=== PATIENT | female | born 1995 | race Hispanic/Latino ===

== ENCOUNTER 2023-06-19 07:48 | Day surgery (SDC) | payer MEDICAID ==
[2023-06-16 12:01] LABS: BASOPHILS # (AUTO) 0.04 K/uL (0.00-0.20); BASOPHILS % (AUTO) 0.5 % (0.0-5.0); EOSINOPHILS # (AUTO) 0.34 K/uL (0.00-0.70); EOSINOPHILS % (AUTO) 4.2 % (0.0-8.0); HEMATOCRIT 35.3 % (36-48); IMMATURE GRANULOCYTE ABSOLUTE 0.03 K/uL (0-1); LYMPHOCYTES # (AUTO) 1.7 K/uL (1.0-4.8); LYMPHOCYTES % (AUTO) 21.5 % (21.0-51.0); MEAN CORPUSCULAR HEMOGLOBIN 24.9 pg (27.0-33.0); MEAN CORPUSCULAR HGB CONC 31.2 g/dL (32.0-36.0); MONOCYTES # (AUTO) 0.7 K/uL (0.1-1.0); NEUTROPHILS # (AUTO) 5.2 K/uL (1.8-7.7); NEUTROPHILS % (AUTO) 64.4 % (40.0-77.0); PLATELET COUNT (AUTO) 397 K/uL (130-400); RED BLOOD CELL COUNT(AUTO) 4.41 MIL/uL (4.00-5.50); RED CELL DISTRIBUTION WIDTH 15.3 % (11.0-15.5)
[2023-06-16 12:06] LABS: CREATININE 0.7 mg/dL (0.5-1.5)
[2023-06-16 12:07] VITALS: BP 124/76; PULSE 63; RESP 18
[~2023-06-19] VITALS: Ht 157.5 cm; Wt 88.7 kg
[2023-06-19] VITALS (15 sets, daily range): BP systolic 109–134; BP diastolic 55–89; PULSE 58–83; RESP 11–17
[~2023-06-19 07:48] MED LIST: ESCI-8 PO
[2023-06-19] MEDS ORDERED: LACTATED RINGERS 1000ML 1,000 ML IV ONE (08:34)
[2023-06-19] MEDS ORDERED: CEFAZOLIN SODIUM 2 GM VIAL ONE (08:34)
[2023-06-19] MEDS ORDERED: LIDOCAINE HCL 1% 20 ML VIAL ONE (11:12)
[2023-06-19] MEDS ORDERED: BUPIVACAINE/PF 0.25% 30ML VIAL IJ ONE ×2 (11:13→12:56)
[2023-06-19] MEDS ORDERED: FAMOTIDINE 20MG VIAL IV ONE (12:00)
[2023-06-19] MEDS ORDERED: MIDAZOLAM HCL 1 MG/ML 2ML VIAL ONE (12:23)
[2023-06-19] MEDS ORDERED: PROPOFOL 10 MG/ML 20ML VIAL IV ONE (12:45)
[2023-06-19] MEDS ORDERED: LIDOCAINE PF 100MG/5ML (2%) SYRINGE 5ML ONE (12:45)
[2023-06-19] MEDS ORDERED: FENTANYL CITRATE PF 50 MCG/1 ML 2ML VIAL ONE (12:47)
[2023-06-19] MEDS ORDERED: CEFAZOLIN SODIUM 2 GM VIAL IVPB ONE (12:54)
[2023-06-19] MEDS ORDERED: LIDOCAINE HCL 1% 20 ML VIAL MISC ONE (12:55)
[2023-06-19] MEDS ORDERED: ONDANSETRON 4MG INJ ONE (12:59)
== END 2023-06-19 15:12 | disposition home or self-care (01) ==
LOC: DAH 07:48
PROVIDERS: ATTEND Student in an Organized Health Care Education/Training Program
DX: R22.41 Localized swelling, mass and lump, right lower limb (principal); D17.0 Benign lipomatous neoplasm of skin and subcutaneous tissue of head, face and neck; F41.9 Anxiety disorder, unspecified; F32.A Depression, unspecified; Z79.01 Long term (current) use of anticoagulants; Z79.899 Other long term (current) drug therapy; Z98.891 History of uterine scar from previous surgery; Z83.3 Family history of diabetes mellitus; Z83.6 Family history of other diseases of the respiratory system
CPT/HCPCS: 80048; 84703; 85025; 36415; 21013; 11401; 88307; A6260; A4663; J7120; J3010; J0665 ×2; J3490 ×2; J2250; J2405; J0690 ×2; A4930 ×2; A4215; A4223; A4222; A4221; A4600; S0028; J2001; J2704; G0168